=== PATIENT | female | born 1995 | race Caucasian/White ===

== ENCOUNTER 2023-07-18 06:00 | Inpatient (IN) | payer MEDICAID ==
[~2023-07-18] VITALS: Ht 157.5 cm; Wt 70.8 kg
[~2023-07-18 06:00] MED LIST: MOTRIN 800800 MG/TAB PO; PERCOCET 325 MG1 TA2 PO; ZOFRAN ODT4 MG PO
[2023-07-18] MEDS ORDERED: Ondansetron 4 MG/2 ML VIAL ONE (07:19)
[2023-07-18] MEDS ORDERED: Oxytocin 10 UNITS/ML VIAL ONE (07:19)
[2023-07-18] MEDS ORDERED: dexAMETHasone 10 MG/ML VIAL ONE (07:19)
[2023-07-18] MEDS ORDERED: Ketorolac 30 MG/ML VIAL ONE (07:19)
[2023-07-18] MEDS ORDERED: NS 30 ML IV ONE (07:19)
[2023-07-18] MEDS ORDERED: Phenylephrine 10 MG/ML VIAL ONE (07:19)
[2023-07-18] MEDS ORDERED: EPINEPHrine 1 MG/1 ML Ampule ONE (07:54)
[2023-07-19] VITALS: BP 112/55; PULSE 50; TEMP 97.4
--- NOTE | 2023-07-19 02:23 | NUR ---
An Electronic Health Record (EHR) downtime event occurred during this patients care. For legal medical record information generated during the downtime period, please reference the patient's legal medical record. Paper or scanned documentation has been incorporated into the legal medical record which is maintained in accordance with Health Information Management (HIM) and record retention policies.
[2023-07-19] MEDS ORDERED: Acetaminophen 500 MG TAB PO PRN (04:00)
[2023-07-19] MEDS ORDERED: Witch Hazel 50% Pads Bulk TUB TP SCH (04:00)
[2023-07-19] MEDS ORDERED: Mag/Al Hydrox/Simeth Susp 30 ML CUP PO PRN (04:00)
[2023-07-19] MEDS ORDERED: Phenylephrine/Mineral Oil/Petrolatum 57 GM TUBE RC PRN (04:00)
[2023-07-19] MEDS ORDERED: Loratadine 10 MG TAB PO PRN (04:00)
[2023-07-19] MEDS ORDERED: oxyCODONE 5 MG TAB PO PRN (04:00)
[2023-07-19] MEDS ORDERED: Measles/Mumps/Rubella Virus Vaccine Live w Diluent 0.5 ML VIAL SQ SCH (04:00)
[2023-07-19] MEDS ORDERED: traZODone 50 MG TAB PO PRN (04:15)
[2023-07-19] MEDS ORDERED: Naloxone 0.4 MG/ML VIAL IV PRN (04:15)
[2023-07-19] MEDS ORDERED: Sennosides/Docusate 8.6-50 MG TAB PO SCH (08:00)
[2023-07-19] MEDS ORDERED: Ibuprofen 800 MG TAB PO SCH (08:00)
[2023-07-19 08:15] VITALS: BP 102/61; PULSE 61; TEMP 98.3
--- NOTE | 2023-07-19 09:13 | NUR ---
Initial visit; Parents thanked Utility Repairer for offering congratulations and God's blessings for the of their daughter. They both state that their stay here has been very good and they thanked Utility Repairer for complimenting them on the name they chose for their daughter and Utility Repairer's offer to "Bless" their daughter if they decide they would like her to be blessed since they don't have a [facility] at this time.
[2023-07-19] MEDS ORDERED: Magnes Hydrox (MOM) 80 MG/ML 30 ML CUP PO SCH (21:00)
== END 2023-07-19 13:00 | disposition home or self-care (01) | DRG 788 ==
LOC: OB 06:00
PROVIDERS: ADMIT Obstetrics & Gynecology
PROC: 10D00Z1 Extraction of Products of Conception, Low, Open Approach (ICD-10-PCS; principal; 2023-07-18)
DX: O34.211 Maternal care for low transverse scar from previous cesarean delivery (principal); Z3A.39 39 weeks gestation of pregnancy; Z37.0 Single live birth; F41.9 Anxiety disorder, unspecified; O99.344 Other mental disorders complicating childbirth; M41.9 Scoliosis, unspecified; O99.892 Other specified diseases and conditions complicating childbirth; F32.A Depression, unspecified; O34.03 Maternal care for unspecified congenital malformation of uterus, third trimester; Q51.3 Bicornate uterus
CPT/HCPCS: J0171; J0665; J0690; J1100; J1885; J2371; J2405; J2590